=== PATIENT | female | born 1950 | race Caucasian/White ===

== ENCOUNTER → 2021-03-21 12:41 | Outpatient (CLI) | payer MEDICARE, SELFPAY ==
--- NOTE | 2021-03-21 | DI.MG.S_ITS ---
UNILATERAL LEFT DIGITAL DIAGNOSTIC MAMMOGRAM 3D/2D: 03/21/2021 CLINICAL: Short term follow up for the left breast. Comparison is made to exams dated: 09/07/2020 ultrasound, 09/07/2020 mammogram, 08/17/2020 mammogram, and 12/31/2018 mammogram - [facility]. The tissue of left breast is predominantly fatty. There is a stable benign 0.5 cm x 0.4 cm oval asymmetry with an indistinct margin in the left breast anterior depth lateral region seen on the craniocaudal view only. No other significant masses or calcifications are seen in the breast. IMPRESSION: BENIGN There is no mammographic evidence of malignancy. Return to annual mammogram screening schedule is recommended. This exam was interpreted at Station ID: [id number]. NOTE: For mammograms, a report in lay terms will be sent to the patient. Approximately 15% of breast malignancies will not be visualized mammographically. In the management of a palpable breast mass, a negative mammogram must not discourage biopsy of a clinically suspicious lesion. Electronically Signed By: Lino Fiore M.D. jr/:03/21/2021 13:12:36 letter sent: Normal Exam ACR BI-RADS Category 2: Benign Finding(s) 3342F
== END ==
PROVIDERS: PCP Internal Medicine; Referring Provider Internal Medicine; Visit Provider Internal Medicine
DX: R92.8 Other abnormal and inconclusive findings on diagnostic imaging of breast (principal)
CPT/HCPCS: 77065; G0279